=== PATIENT | female | born 1985 | race Caucasian/White ===

== ENCOUNTER → 2016-09-27 | Outpatient (CLI) | payer OTHER, MEDICAID ==
[~2016-09-27] MED LIST: DHA200CA PO; IBUP-232 PO; OXYC1TAB63 PO; PERC5TAB12 PO; PREN0.01 PO; PRENTAB85
== END ==
LOC: HPND 13:57
PROVIDERS: ATTEND Obstetrics & Gynecology
DX: O09.892 Supervision of other high risk pregnancies, second trimester (principal); O35.8XX0 Maternal care for other (suspected) fetal abnormality and damage, not applicable or unspecified
CPT/HCPCS: 76811

== ENCOUNTER → 2016-11-07 | Outpatient (CLI) | payer OTHER | LOC: HPND 09:59 | PROVIDERS: ATTEND Obstetrics & Gynecology | DX: O35.8XX0 Maternal care for other (suspected) fetal abnormality and damage, not applicable or unspecified (principal); Z3A.28 28 weeks gestation of pregnancy | CPT/HCPCS: 76811; 76816 ==

== ENCOUNTER 2017-01-18 09:42 | Inpatient (IN) | payer OTHER, MEDICAID ==
[~2017-01-18] VITALS: Ht 170.2 cm; Wt 83.0 kg
[2017-01-18] VITALS (22 sets, daily range): BP systolic 100–122; BP diastolic 57–70; PULSE 53–65; RESP 16–19; TEMP 97.5–98; O2SAT 97–99
[~2017-01-18 09:42] MED LIST changes: -IBUP-232 PO; -OXYC1TAB63 PO; -PRENTAB85
[2017-01-18 10:34] LABS: AUTOMATED NEUTROPHIL # 8.5 TH/MM3 (1.8-7.7); BASOPHIL % 0.2 % (0.0-2.0); EOSINOPHIL # 0.1 TH/MM3 (0-0.4); EOSINOPHIL % 0.6 % (0.0-4.0); HEMATOCRIT 35.4 % (35.0-46.0); HEMO FLAGS DIFF FINAL; LYMPH % 13.1 % (9.0-44.0); LYMPHOCYTE # 1.4 TH/MM3 (1.0-4.8); MEAN CELL VOLUME 88.1 FL (80.0-100.0); MEAN CORPUSCULAR HEMOGLOBIN 29.3 PG (27.0-34.0); MEAN CORPUSCULAR HGB CONC 33.3 % (32.0-36.0); MONO % 7.2 % (0.0-8.0); NEUT % 78.9 % (16.0-70.0); PLATELET COUNT 182 TH/MM3 (150-450); RED BLOOD COUNT 4.02 MIL/MM3 (4.00-5.30); RED CELL DISTRIBUTION WIDTH 13.2 % (11.6-17.2); WHITE BLOOD COUNT 10.8 TH/MM3 (4.0-11.0)
[2017-01-18] MEDS ORDERED: LACTATED RINGER'S 1000 ML INJ 1,000 ML IV ONE ×2 (10:38→13:00)
[2017-01-18 10:42] LABS: BACTERIA, URINE RARE /hpf; BLOOD, URINE NEG (NEG); COMMENT (UR) CULT NOT INDICATED; CULTURE IF INDICATED CULT NOT INDICATED; GLUCOSE,URINE NEG (NEG); KETONE, URINE NEG (NEG); NITRITE,URINE NEG (NEG); PH, URINE 7.5 (5.0-8.5); SQUAMOUS EPITHELIAL CELL URINE <1 /hpf (0-5); URINE COLOR LIGHT-YELLOW (YELLW/STRAW)
[2017-01-18] MEDS ORDERED: PRENTAB85 (10:57)
--- NOTE | 2017-01-18 10:58 | HHI.HP ---
HPI Chief Complaint Repeat . Date Seen: January 18, 2017 Travel History International Travel<30 Days: No Contact w/Intl Traveler<30Days: No History of Present Illness HPI Patient is a 31 year old at 39-0/7 weeks gestation who presents today for repeat . She denies any vaginal bleeding or discharge. No gush or leaking of fluid. Positive movement. Irregular contractions. No complications with . History Past Medical History Medical History: Denies Significant Hx Obstetric History Obstetric History s/p spontaneous x 2 term in 2012 for arrest of labor Past Surgical History Narrative Surgical Tonsillectomy and adenoidectomy 2013 2012 Family History Family History: Negative Social History Alcohol Use: No Tobacco Use: No Substance Abuse: No Allergies-Medications (Allergen,Severity, Reaction): Coded Allergies: No Known Allergies (Unverified , 07/16/13) Home Meds Reported Medications Vit W/ Ferrous Fumara (Pnv Plus Multivi 27-1 mg)1 Tab Tab 01/18/17 Discontinued Reported Medications Oxycodone-Acetaminophen 5-325 mg (Percocet 5-325 mg)5 Mg/325 Mg Tab1-2 Tab PO Q4H PRN (PAIN SCALE 1 TO 5) #50 TAB 07/20/13 Docosahexaenoic Acid (Dha Complete)200 Mg Rdg304 Mg PO 07/16/13 Multivit/Min/Fol Ac/Iron/Pren ( Vit ( Plus)) Tab1 Tab PO DAILY 07/16/13 Review of Systems Except as stated in HPI: all other systems reviewed are Neg General / Constitutional: No: Fever, Chills Eyes: No: Blurred Vision HENT: No: Headaches Cardiovascular: No: Chest Pain or Discomfort Respiratory: No: Short of Breath Gastrointestinal: No: Abdominal Pain Genitourinary: No: Pelvic Pain, Discharge, Vaginal Bleeding Musculoskeletal: No: Edema Neurologic: No: Headache Psychiatric: No: Substance Abuse Physical Exam Vital Signs Date Time Temp Pulse Resp B/P Pulse Ox O2 Delivery O2 Flow Rate FiO2 01/18/17 10:27 18 01/18/17 10:25 60 01/18/17 10:10 59 01/18/17 10:08 57 113/66 01/18/17 10:05 56 01/18/17 10:00 61 Narrative GENERAL: Well-nourished, well-developed patient. SKIN: Warm and dry. HEAD: Normocephalic and atraumatic. EYES: No scleral icterus. No injection or drainage. ENT: No nasal drainage noted. Mucous membranes pink. Airway patent. NECK: Supple, trachea midline. No JVD. CARDIOVASCULAR: Regular rate and rhythm without murmurs, gallops, or rubs. RESPIRATORY: Breath sounds equal bilaterally. No accessory muscle use. ABDOMEN/GI: Abdomen soft, non-tender, bowel sounds present, no rebound, no guarding Gravid to 40 weeks size GENITOURINARY: Membranes: intact Uterine Contractions: none FHT's: Category: I Baseline: 125 Reactive: + Variability: moderate Decels: none EXTREMITIES: No cyanosis or edema. BACK: Nontender without obvious deformity. No CVA tenderness. NEUROLOGICAL: Awake and alert. Motor and sensory grossly within normal limits. Normal speech. Data Data Vital Signs Reviewed: Yes Orders Code Status (01/18/17 10:25) Vital Signs (Adult) .ON ADMISSION (01/18/17 10:25) Activity Oob Ad Janie (01/18/17 10:25) Heart (01/18/17 10:25) Urinary Catheter Management MARIELENA.Q8H (01/18/17 10:25) ^ Preps (01/18/17 10:25) Scd / Gurdeep / Foot Pump MARIELENA.QSHIFT (01/18/17 10:25) ^ Ultrasound For Locatio (01/18/17 10:25) Diet Npo (01/18/17 Lunch) Type And Screen (01/18/17 10:25) Complete Blood Count With Diff (01/18/17 10:25) Urinalysis - C+S If Indicated (01/18/17 10:25) Specimen To Be Collected PRN (01/18/17 10:25) Admit To Inpatient (01/18/17 ) Vital Signs (Adult) .ON ADMISSION (01/18/17 10:38) Activity Oob Ad Janie (01/18/17 10:38) Lactated Ringer's 1000 Ml Inj (Lr 1000 M (01/18/17 10:38) Lactated Ringer's 1000 Ml Inj (Lr 1000 M (01/18/17 11:08) Cefazolin 2 Gm Premix (Ancef 2 Gm Premix (01/18/17 11:45) Citric Acid-Sodium Citrate Liq (Bicitra (01/18/17 12:15) Inpatient Certification (01/18/17 ) Labs Laboratory Tests Test 01/18/17 10:05 White Blood Count 10.8 Red Blood Count 4.02 Hemoglobin 11.8 Hematocrit 35.4 Mean Corpuscular Volume 88.1 Mean Corpuscular Hemoglobin 29.3 Mean Corpuscular Hemoglobin 33.3 Concent Red Cell Distribution Width 13.2 Platelet Count 182 Mean Platelet Volume 7.2 Neutrophils (%) (Auto) 78.9 Lymphocytes (%) (Auto) 13.1 Monocytes (%) (Auto) 7.2 Eosinophils (%) (Auto) 0.6 Basophils (%) (Auto) 0.2 Neutrophils # (Auto) 8.5 Lymphocytes # (Auto) 1.4 Monocytes # (Auto) 0.8 Eosinophils # (Auto) 0.1 Basophils # (Auto) 0.0 CBC Comment DIFF FINAL Differential Comment Assessment/Plan Assessment and Plan 31 year old at 39-0/7 weeks gestation. 1. IUP- Category I tracing, reassuring. 2. Repeat . 3. GBS positive. 4. Rh negative (Blood type O-). Jennifer Moreno Dr., MD R2 January 18, 2017 10:58
[2017-01-18] MEDS ORDERED: DICLOFENAC SODIUM 37.5 MG/ML VIAL IV PUSH ONE (11:05)
[2017-01-18] MEDS ORDERED: MORPHINE SULFATE PF 5 MG/10 ML VIAL ONE (11:05)
[2017-01-18] MEDS ORDERED: OXYTOCIN 10 UNIT/ML AMP ONE (11:06)
[2017-01-18] MEDS ORDERED: ONDANSETRON HCL 4 MG/2 ML VIAL ONE (11:06)
[2017-01-18] MEDS ORDERED: LACTATED RINGER'S 1000 ML INJ 1,000 ML IV SCH ×2 (11:08→18:12)
[2017-01-18] MEDS ORDERED: ceFAZolin 2 GM PREMIX 50 ML IV SCH (11:45)
[2017-01-18] MEDS ORDERED: CITRIC ACID-SODIUM CITRATE LIQ 30 ML UDC PO SCH (12:15)
[2017-01-18] MEDS ORDERED: OXYTOCIN 30 UNITS-500ML PREMIX 500 ML IV ONE (13:15)
[2017-01-18] MEDS ORDERED: SODIUM CHLORIDE 0.9% FLUSH 10 ML FLUSH IV FLUSH PRN (13:15)
[2017-01-18] MEDS ORDERED: ZOLPIDEM TARTRATE 5 MG TAB PO PRN (13:15)
[2017-01-18] MEDS ORDERED: ONDANSETRON HCL 4 MG/2 ML VIAL IV PUSH PRN (13:15)
[2017-01-18] MEDS ORDERED: ACETAMINOPHEN 325 MG TAB PO PRN (13:15)
[2017-01-18] MEDS ORDERED: OXYTOCIN 30 UNITS-500ML PREMIX 500 ML ONE (14:18)
[2017-01-18] MEDS ORDERED: EPIDURAL-NALOXONE HCL 0.4 MG/ML AMP IV PRN (15:45)
[2017-01-18] MEDS ORDERED: EPIDURAL-DIPHENHYDRAMINE HCL 50 MG CAP PO PRN (15:45)
[2017-01-18] MEDS ORDERED: EPIDURAL-DIPHENHYDRAMINE HCL 50 MG/ML VIAL IV PUSH PRN (15:45)
[2017-01-18] MEDS ORDERED: EPIDURAL-DO NOT ADMINISTER ANTICOAGULANTS PRN (15:45)
[2017-01-18] MEDS ORDERED: EPIDURAL-NO SYSTEMIC NARCOTICS PRN (15:45)
[2017-01-18] MEDS ORDERED: DICLOFENAC SODIUM 37.5 MG/ML VIAL IV PUSH SCH (21:00)
[2017-01-18] MEDS: IBUPROFEN 600 MG TAB PO PRN (22:05)
[2017-01-18] MEDS: oxyCODONE/ACETAMINOPHEN 5 MG/325 MG TAB PO PRN (22:05)
[2017-01-18] MEDS ORDERED: OXYTOCIN 30 UNITS-500ML PREMIX 500 ML IV PRN (23:15)
[2017-01-19] MEDS: oxyCODONE/ACETAMINOPHEN 5 MG/325 MG TAB PO PRN ×4 (03:48→19:57)
[2017-01-19] MEDS: IBUPROFEN 600 MG TAB PO PRN ×3 (03:49→15:42)
[2017-01-19 05:55] LABS: BASOPHIL % 0.3 % (0.0-2.0); EOSINOPHIL # 0.2 TH/MM3 (0-0.4); EOSINOPHIL % 1.7 % (0.0-4.0); HEMATOCRIT 30.7 % (35.0-46.0); HEMO FLAGS DIFF FINAL; LYMPH % 10.8 % (9.0-44.0); LYMPHOCYTE # 1.3 TH/MM3 (1.0-4.8); MEAN CELL VOLUME 87.6 FL (80.0-100.0); MEAN CORPUSCULAR HEMOGLOBIN 29.5 PG (27.0-34.0); MEAN CORPUSCULAR HGB CONC 33.7 % (32.0-36.0); MONO % 7.3 % (0.0-8.0); NEUT % 79.9 % (16.0-70.0); PLATELET COUNT 176 TH/MM3 (150-450); RED BLOOD COUNT 3.51 MIL/MM3 (4.00-5.30); RED CELL DISTRIBUTION WIDTH 13.1 % (11.6-17.2); WHITE BLOOD COUNT 12.5 TH/MM3 (4.0-11.0)
[2017-01-19 07:50] VITALS: BP 120/82; PULSE 62; RESP 18; TEMP 97.8
[2017-01-19] MEDS ORDERED: OXYC1TAB63 PO (07:59)
[2017-01-19] MEDS ORDERED: IBUP-232 PO (07:59)
--- NOTE | 2017-01-19 08:33 | MP ---
cc: Conor VINES MD Corrected Copy: 01/30/17 DATE OF SURGERY 01/18/17 PREOPERATIVE DIAGNOSIS 1. Intrauterine at 39 weeks 2. Previous section, desires repeat. POSTOPERATIVE DIAGNOSIS 1. Intrauterine at 39 weeks 2. Previous section, desires repeat. PROCEDURE Repeat low transverse section. ANESTHESIA Spinal SURGEON Conor Vines MD FINDINGS Normal female , Apgars 8 and 9. Normal tubes, normal ovaries. COMPLICATIONS None. COUNTS Correct. ESTIMATED BLOOD LOSS 700 cc FLUIDS Crystalloids. DISPOSITION The patient tolerated procedure well and went to recovery room in good condition. PROCEDURE IN DETAIL The patient was taken to the operating room identified by name band and verbally. She was given a spinal anesthetic. A Fragoso catheter was inserted. She was prepped and draped for section. The old Pfannenstiel incision was removed and excised completely and the incision was taken down to the fascia. The fascia was taken off the rectus muscle by blunt and sharp dissection. The peritoneum was entered under direct vision without complication. The incision was extended with care to avoid the urinary bladder. A bladder blade was placed and a bladder flap created over the lower uterine segment which was well-developed. The uterus was then scored in a transverse manner along the lower uterine segment and taken down in the midline until the uterine cavity was entered. The incision was extended with the surgeon's fingers. The vertex was grasped and delivered through the incision without difficulty. The hypopharynx and nasopharynx were suctioned. The remainder of the infant was delivered. The cord was doubly clamped and cut and the infant handed to the resuscitation team that was present. Cord blood was obtained. The placenta was delivered manually without difficulty. The uterus was curetted twice with a wet lap. The uterine incision was repaired with 2-0 Vicryl a running locking fashion, the second layer imbricating the first. The cul-de-sac and gutters were cleaned of blood and debris with a large amount of irrigation. The uterus was delivered back into the abdomen. The incision was again inspected and was hemostatic. The rectus muscles were reapproximated with 0 Vicryl in an interrupted fashion. The fascia was repaired with 0 Vicryl from lateral to midline bilaterally in a running fashion. The subcutaneous tissue was repaired with 3-0 Vicryl. The skin was repaired with 4-0 Monocryl in a subcuticular manner. Steri-Strips were applied. The wound was sterilely dressed. She tolerated the procedure well and went to the recovery room in good condition. R. MD HARVEY Balderas/ /1:47 PM /12:09 PM
--- NOTE | 2017-01-19 08:39 | HHI.OB ---
Subjective Remarks No acute issues overnight. Vitals are stable, patient remains afebrile. She is feeling well overall this morning. She is without difficulty. Her pain is well-controlled with the pain medication and her bleeding is decreasing. She denies any chest pain, shortness of breath, or leg pain. Objective Vitals/I&O Vital Signs Date Time Temp Pulse Resp B/P Pulse Ox O2 Delivery O2 Flow Rate FiO2 01/18/17 18:05 98.0 59 16 112/70 01/18/17 15:30 97.5 56 18 122/64 01/18/17 14:30 58 18 108/62 97 01/18/17 14:15 111/67 01/18/17 14:13 53 01/18/17 14:13 17 97 01/18/17 14:00 54 17 100/57 98 01/18/17 13:45 97.7 59 19 99 01/18/17 13:45 115/67 01/18/17 11:10 59 01/18/17 11:05 65 01/18/17 11:00 61 01/18/17 10:59 97.8 01/18/17 10:55 62 01/18/17 10:45 61 01/18/17 10:40 59 01/18/17 10:35 58 01/18/17 10:30 61 01/18/17 10:27 18 01/18/17 10:25 60 01/18/17 10:10 59 01/18/17 10:08 57 113/66 01/18/17 10:05 56 01/18/17 10:00 61 Result Diagram: 01/19/17 0509 Objective Remarks GENERAL: Well-nourished, well-developed patient. CARDIOVASCULAR: Regular rate and rhythm without murmurs, gallops, or rubs. RESPIRATORY: Breath sounds equal bilaterally. No accessory muscle use. ABDOMEN/GI: Abdomen soft, non-tender, bowel sounds present. Incision: Clean, dry and intact. Fundus: Firm, non-tender at umbilicus. GENITOURINARY: Light to moderate bleeding. EXTREMITIES: No cyanosis or edema, non-tender, without signs of DVT. Medications and IVs Current Medications Medications (Trade) Dose Ordered Sig/Osiris Route Start Time Stop Time Status Last Admin (Lr 1000 ml Inj) 1,000 ml @ 100 mls/hr Q10H IV 5/25/17 18:12 01/19/17 14:11 (NS Flush) 2 ml BID IV FLUSH 01/18/17 21:00 (NS Flush) 2 ml UNSCH PRN IV FLUSH 01/18/17 13:15 (Mylicon Chew) 80 mg QID PRN PO 01/18/17 13:15 (Tylenol) 650 mg Q6H PRN PO 01/18/17 13:15 (Motrin) 600 mg Q6H PRN PO 01/18/17 13:15 01/19/17 03:49 (Percocet 5-325 Mg) 1 tab Q4H PRN PO 01/18/17 13:15 01/19/17 03:48 (Percocet 5-325 Mg) 2 tab Q4H PRN PO 01/18/17 13:15 (Domenica-Colace) 2 tab Q12H PRN PO 01/18/17 13:15 (Ambien) 5 mg HS PRN PO 01/18/17 13:15 (M-M-R Ii Inj) 0.5 ml ONCE ONCE SQ 01/19/17 16:00 01/19/17 16:01 (Boostrix Inj) 0.5 ml ONCE ONCE IM 01/19/17 16:00 01/19/17 16:01 (Zofran Inj) 4 mg Q6H PRN IV PUSH 01/18/17 13:15 Miscellaneous Information NO SYSTEMIC NARCOTICS TO BE GIVEN FO... UNSCH PRN .XX 01/18/17 15:45 01/19/17 15:44 (Narcan Inj) 0.4 mg UNSCH PRN IV 01/18/17 15:45 01/19/17 15:44 (Benadryl Inj) 25 mg Q6H PRN IV PUSH 01/18/17 15:45 01/19/17 15:44 (Benadryl) 50 mg Q6H PRN PO 01/18/17 15:45 01/19/17 15:44 Miscellaneous Information ALL NURSING DEPARTMENTS UNSCH PRN .XX 01/18/17 15:45 01/19/17 15:44 Assessment/Plan Assessment and Plan 31 year old POD #1. - Pain well controlled, continue Motrin and Percocet PRN. - Hgb stable at 10.4 today. - Follow-up in 2 weeks for incision check. - Anticipate discharge tomorrow. Jennifer Mayo Dr., MD R2 January 19, 2017 08:38
[2017-01-19] MEDS: SIMETHICONE 80 MG CHEWABLE TAB PO PRN (08:54)
[2017-01-19] MEDS: SODIUM CHLORIDE 0.9% FLUSH 10 ML FLUSH IV FLUSH SCH ×2 (09:00→19:43)
[2017-01-19] MEDS: DOCUSATE SODIUM 50 MG/SENNA 8.6 MG TAB PO PRN (09:47)
--- NOTE | 2017-01-19 13:24 | HHI.DCPOC ---
Discharge Care Plan Report Symptoms to Your Doctor -Temperate above 100.5 degrees -Redness, of incision or excessive or foul smelling drainage -Unusual pain or calf pain -Increased vaginal bleeding -Painful or difficulty urinating -Feelings of extreme sadness or anxiety after 2 weeks Goals to Promote Your Health * To prevent worsening of your condition and complications * To maintain your health at the optimal level Directions to Meet Your Goals Take your medications as prescribed Follow your dietary instruction Follow activity as directed Ensure plenty of rest for recovery Drink fluids for hydration Keep your appointments as scheduled Take your immunizations and boosters as scheduled If your symptoms worsen call your PCP, if no PCP go to Urgent Care Center or Emergency Room Smoking is Dangerous to Your Health. Avoid second hand smoke Call the 24-hour crisis hotline for domestic abuse at Conor Vines MD January 19, 2017 13:24
[2017-01-19] MEDS ORDERED: DIPHTH/TETANUS/ACEL PERTUSSIS (BOOSTER) 0.5 ML VIAL/PFS IM ONE (16:00)
[2017-01-19] MEDS ORDERED: MEASLES, MUMPS, RUBELLA VACCINE 0.5 ML VIAL SQ ONE (16:00)
[2017-01-19 20:00] VITALS: BP 126/69; PULSE 60; RESP 16; TEMP 97.9
[2017-01-20] MEDS: SIMETHICONE 80 MG CHEWABLE TAB PO PRN ×2 (00:03→09:52)
[2017-01-20] MEDS: oxyCODONE/ACETAMINOPHEN 5 MG/325 MG TAB PO PRN ×4 (00:03→09:52)
[2017-01-20] MEDS: DOCUSATE SODIUM 50 MG/SENNA 8.6 MG TAB PO PRN ×2 (00:03→09:52)
[2017-01-20] MEDS: IBUPROFEN 600 MG TAB PO PRN ×3 (00:04→12:01)
[2017-01-20 04:45] VITALS: BP 125/80; PULSE 85; RESP 18; TEMP 98
[2017-01-20 08:00] VITALS: BP 118/78; PULSE 80; RESP 18; TEMP 98.4
--- NOTE | 2017-01-20 09:15 | HHI.OB ---
Subjective Post Operative Day: 2 Remarks pt doing well, , desires discharge home today if possible Objective Vitals/I&O Vital Signs Date Time Temp Pulse Resp B/P Pulse Ox O2 Delivery O2 Flow Rate FiO2 01/20/17 04:45 85 18 125/80 01/20/17 04:45 98.0 01/19/17 20:00 97.9 60 16 126/69 Result Diagram: 01/19/17 0509 Objective Remarks GENERAL: Well-nourished, well-developed patient. CARDIOVASCULAR: Regular rate and rhythm without murmurs, gallops, or rubs. RESPIRATORY: Breath sounds equal bilaterally. No accessory muscle use. ABDOMEN/GI: Abdomen soft, non-tender, bowel sounds present. Incision: Clean, dry and intact. Fundus: Firm, non-tender at umbilicus. GENITOURINARY: Light to moderate bleeding. EXTREMITIES: No cyanosis or edema, non-tender, without signs of DVT. Medications and IVs Current Medications Medications (Trade) Dose Ordered Sig/Osiris Route Start Time Stop Time Status Last Admin (NS Flush) 2 ml BID IV FLUSH 01/18/17 21:00 (NS Flush) 2 ml UNSCH PRN IV FLUSH 01/18/17 13:15 (Mylicon Chew) 80 mg QID PRN PO 01/18/17 13:15 01/20/17 00:03 (Tylenol) 650 mg Q6H PRN PO 01/18/17 13:15 (Motrin) 600 mg Q6H PRN PO 01/18/17 13:15 01/20/17 05:56 (Percocet 5-325 Mg) 1 tab Q4H PRN PO 01/18/17 13:15 01/20/17 05:56 (Percocet 5-325 Mg) 2 tab Q4H PRN PO 01/18/17 13:15 01/20/17 00:03 (Domenica-Colace) 2 tab Q12H PRN PO 01/18/17 13:15 01/20/17 00:03 (Ambien) 5 mg HS PRN PO 01/18/17 13:15 (Zofran Inj) 4 mg Q6H PRN IV PUSH 01/18/17 13:15 Assessment/Plan Assessment and Plan 31 year old POD #2. - Pain well controlled, continue Motrin and Percocet PRN. - Hgb stable at 10.4 today. - Follow-up in 2 weeks for incision check. - Anticipate discharge today Discharge Planning routine Attending Attestation pt seen by Puja Son MD January 20, 2017 09:15
== END 2017-01-20 12:50 | disposition home or self-care (01) | DRG 766 ==
LOC: H2EB 09:42 → H1EA 14:54
PROVIDERS: ADMIT Obstetrics & Gynecology; ATTEND Obstetrics & Gynecology
PROC: 10D00Z1 Extraction of Products of Conception, Low, Open Approach (ICD-10-PCS; principal; 2017-01-18)
DX: O99.824 Streptococcus B carrier state complicating childbirth (principal); O34.211 Maternal care for low transverse scar from previous cesarean delivery; Z37.0 Single live birth; Z3A.39 39 weeks gestation of pregnancy
CPT/HCPCS: 59025; 81001; 85025; 86850; 86900; 86901; 90707; 90715; J0690; J1130; J2274; J2405; J2590; J7120